=== PATIENT | male | born 1945 | race Caucasian/White ===

== ENCOUNTER 2022-06-13 10:03 | Observation (INO) | payer OTHER, SELFPAY ==
[2022-06-13] VITALS (18 sets, daily range): BP systolic 128–159; BP diastolic 63–83; PULSE 79–106; RESP 11–25; TEMP 36.7–37.5; O2SAT 93–100
--- NOTE | ~2022-06-13 | XR_ITS ---
EXAMINATION: XR chest 1V portable DATE: 06/13/2022 10:17 INDICATION: Midsternal chest pain radiating to the back TECHNIQUE: frontal view of the chest was obtained. COMPARISON: Chest radiograph dated 08/29/2009 FINDINGS: The lungs remain clear with no focal airspace opacities, pulmonary edema, pleural effusion or pneumot horax. The cardiomediastinal silhouette is normal. There are bridging osteophytes at multiple levels in the spine, consistent with diffuse idiopathic skeletal hyperostosis (DISH). IMPRESSION: 1. No acute cardiopulmonary disease. Reviewed, dictated and finalized at location A.
--- NOTE | 2022-06-13 10:05 | PC.NURSE ---
Dr. Prajapati at bedside to assess pt.
--- NOTE | 2022-06-13 10:05 | ECG_ITS ---
Measurements Intervals [place] Rate: 88 P: 40 NV: 154 QRS: -22 QRSD: 94 T: 33 QT: 350 QTc: 425 Interpretive Statements SINUS RHYTHM POSSIBLE LEFT ATRIAL ENLARGEMENT INCOMPLETE RIGHT BUNDLE BRANCH BLOCK BORDERLINE ECG Electronically Signed On 06-13-2022 16:34:18 CDT by Kranthi Palomino D.O.
--- NOTE | 2022-06-13 10:09 | ED.CHESTPAIN ---
HPI - Chest Pain General Chief Complaint: Chest Pain Stated Complaint: CHEST HEAVINESS Source: RN notes reviewed History of Present Illness HPI narrative: Patient presents emergency department from home via EMS for chest pain. Patient states he awoke with chest pain in the midsternal chest radiating through to his back. The pain was described as a heaviness. Patient states that he had mild shortness of breath related with the pain and states the pain is improved at this time he was given aspirin and nitro by EMS. Patient states he has a history of heart attack 15 years ago stent placement but is not seen cardiology for the past 8 years he denies any fevers or chills abdominal pain nausea vomiting or any other symptoms Related Data Allergies Allergy/AdvReac Type Severity Reaction Status Date / Time No Known Allergies Allergy Verified 06/13/22 10:28 Review of Systems Review of Systems: Gen.: Denies fevers or chills ENT: Denies congestion Respiratory: Reports shortness of breath or chest pain CV: HPI GI: Denies abdominal pain nausea, emesis or diarrhea Musculoskeletal: Denies back pain or muscle pain Neuro: Denies numbness, tingling, weakness or focal weakness Skin: Denies rash Except as documented, all other systems reviewed and negative PMF Past Medical History Medical History Chronic kidney disease, stage 3 (moderate) Diabetes mellitus with nephropathy Essential (primary) hypertension Mixed hyperlipidemia (08/11/19) Personal history of malignant melanoma of skin Vitamin D deficiency Surgical History Surgical History History of coronary artery stent placement (08/11/19) Family History Family History Mother Patient's mother is Family history of malignant neoplasm Sibling Patient's sister is in good health Patient's brother is in good health Father Family history of cardiovascular disease Patient's father is Social History Social History Smoking status: Never smoker Second hand tobacco smoke exposure: No Alcohol intake: never Substance use: never Substance use type: does not use Exam Narrative: APPEARANCE: No acute distress, nontoxic, resting in bed EYES: EOMI HEENT: Normocephalic, atraumatic, OMM RESPIRATORY: No respiratory distress Clear to auscultation bilaterally with no rhonchi wheezing or rales. CARDIOVASCULAR: Regular rate and rhythm without murmurs rubs or gallops. ABDOMINAL: Soft, nontender, nondistended, no rebound or guarding MUSCULOSKELETAl: Moves all extremities. No clubbing, cyanosis or edema. NEURO: Awake and alert. Following commands, speech normal, no focal deficits SKIN:: Warm, dry. No rashes lesions or abrasions PSYCHIATRIC: Normal affect/mood, Course Course Emergency Course: Patient states chest pain is resolved at this time Discussed Dr. Wu agrees with admission Discussed with patient and family results of workup and diagnosis. Discussed need for admission. Patient and family understand and agree to current treatment plan Vital Signs Vital signs: Vital Signs Temperature 98.1 F 06/13/22 10:03 Pulse Rate 88 06/13/22 10:03 Respiratory Rate 14 06/13/22 10:03 Blood Pressure 159/80 H 06/13/22 10:03 Pulse Oximetry 96 06/13/22 10:03 Oxygen Delivery Room Air 06/13/22 10:03 Temperature 98.1 F 06/13/22 10:03 Pulse Rate 86 06/13/22 10:22 Respiratory Rate 14 06/13/22 10:03 Blood Pressure 159/80 H 06/13/22 10:03 Pulse Oximetry 99 06/13/22 10:22 Oxygen Delivery Room Air 06/13/22 10:22 MDM - Chest Pain Lab Data Result diagrams: 06/13/22 10:27 06/13/22 10:27 Labs: Lab Results 06/13/22 06/13/22 06/13/22 Range/Units 10:27 10:2
--- NOTE | 2022-06-13 10:14 | PC.NURSE ---
Radiology at bedside to obtain CXR.
[2022-06-13 10:33] LABS: Basophils Percent Auto 0.3 % (0.2-1.2); Eosinophils Absolute Auto 0.1 K/mm3 (0-0.3); Eosinophils Percent Auto 0.6 % (0-4.4); Hematocrit 38.6 % (42.0-52.0); Hemoglobin 12.7 g/dL (14.0-18.0); Immature Granulocyte Absolute 0.03 K/mm3 (0.00-0.031); Immature Granulocyte Percent A 0.3 % (0-0.5); Lymphocytes Absolute Auto 1.71 K/mm3 (0.9-3.2); Lymphocytes Percent Auto 14.8 % (18.3-44.2); Mean Corpuscular HGB Conc 32.9 g/dl (32-36); Mean Corpuscular Hemoglobin 30.2 pg (26-34); Mean Corpuscular Volume 91.9 fl (80-100); Mean Platelet Volume 9.8 fl (7.4-10.4); Monocytes Absolute Auto 1.3 K/mm3 (0.1-0.6); Monocytes Percent Auto 11.4 % (2.6-8.5); Neutrophils Absolute Auto 8.4 K/mm3 (1.3-6.7); Neutrophils Percent Auto 72.6 % (45.5-73.1); Platelet Count Result 222 k/mm3 (150-375); Red Cell Distribution Width 12.4 % (11.5-14.5); White Blood Count 11.5 K/mm3 (4.5-10.0)
[2022-06-13 10:43] LABS: Alanine Aminotransferase 25 U/L (6-50); Albumin Level 4.1 g/dL (3.5-5.1); Alkaline Phosphatase 72 U/L (38-126); Anion Gap 9 mmol/L (8-16); Aspartate Amino Transferase 23 U/L (17-59); Bilirubin,Total 0.7 mg/dL (0.2-1.3); Blood Urea Nitrogen 19 mg/dL (9-20); Carbon Dioxide 26 mmol/L (22-30); Chloride 102 mmol/L (98-107); Estimated CRCL calculation 56 ml/min; Estimated Glomerular Filt Rate 59; Glucose 130 mg/dL (65-110); Lipase 129 U/L (23-300); Potassium 3.9 mmol/L (3.4-5.0); Sodium 137 mmol/L (137-145)
[2022-06-13 10:45] LABS: INR 1.1; Partial Thromboplastin Time 27.2 SECONDS (22.3-36.8); Prothrombin Time 14.2 Seconds (11.1-14.7)
[2022-06-13 10:55] LABS: Troponin I 0.013 ng/mL (0.000-0.034)
--- NOTE | 2022-06-13 11:56 | ADMGEN ---
This patient, Estevan Atkins, was admitted to IMU Room 209-01 at 1149. Patient/family oriented to hospital policies and general routines including ID bracelet, bed and alarms, visiting hours, pain management, procedures, bathroom and other care routines, personal items, smoking policy, room service/diet, and visiting hours. Information on how to activate the Rapid Response Team has been discussed. Patient/Family are encouraged to report perceived risks to care and to ask questions if they do not understand what they are told or what they should do.
--- NOTE | 2022-06-13 12:00 | ADMGEN ---
This patient, Estevan Atkins, was admitted to IMU Room 209-01 at 1200. Patient/family oriented to hospital policies and general routines including ID bracelet, bed and alarms, visiting hours, pain management, procedures, bathroom and other care routines, personal items, smoking policy, room service/diet, and visiting hours. Information on how to activate the Rapid Response Team has been discussed. Patient/Family are encouraged to report perceived risks to care and to ask questions if they do not understand what they are told or what they should do.
--- NOTE | 2022-06-13 12:44 | ECHO_ITS ---
Patient Info Name: Estevan Atkins Age: 77 years : 1945 Gender: Male Ht: 70 in Wt: 224 lbs BSA: 2.27 m2 HR: 98 bpm BP: 157 / 69 mmHg Heart Rhythm: Sinus Rhythm Exam Date: 06/13/2022 2:39 PM Exam Location: [facility] Patient Status: Inpatient Admit Date: 06/13/2022 Staff Ordering Physician: Ania Wu MD Hotel Housekeeper: Manuela Heaton RDCS Attending Provider: Ania Wu MD Referring Physician: Jazmin JIMENEZ; Exam Type: CA echo doppler color flow Study Info Indications - atrial fibrillation Complete two-dimensional, color flow and Doppler transthoracic echocardiogram is performed. Summary 1. Complete two-dimensional, color flow and Doppler transthoracic echocardiogram is performed. 2. Normal left ventricular size and thickness with good contractility of all segments. No segmental wall motion abnormalities. Ejection fraction is 60-65% visually. Grade 1 diastolic dysfunction is present. 3. No significant valve disease. 4. Pulmonary pressure could not be estimated on this study. 5. No pericardial effusion. 6. Mildly dilated sinuses of Valsalva at 4.0 cm. 7. Normal sinus rhythm. Left Ventricle Left ventricular chamber dimension is normal. Left ventricular systolic function is normal, estimated at 60-65%. There is no increased left ventricular wall thickness. Left ventricular septal wall motion is normal. The left ventricular diastolic function is grade I diastolic dysfunction. Right Ventricle Right ventricular chamber dimension is normal. Right ventricular systolic function is normal. Left Atria Left atrial chamber dimension is mildly enlarged. Right Atria Right atrial chamber dimension is normal. Aortic Valve The aortic valve is trileaflet. There is no aortic valve sclerosis. There is no aortic valve stenosis. There is no aortic valve regurgitation. Pulmonic Valve The pulmonic valve is normal. There is no pulmonic valve stenosis. There is no pulmonic regurgitation. Mitral Valve The mitral valve has normal leaflets. There is no mitral valve stenosis. There is trace mitral valve regurgitation. Tricuspid Valve The tricuspid valve leaflets are normal. There is no significant tricuspid valve stenosis. There is trace tricuspid valve regurgitation. No pulmonary hypertension, estimated pulmonary arterial systolic pressure is Empty. Pericardium/Pleural The pericardium appears normal. There is no pericardial effusion. Inferior Vena Cava Normal inferior vena cava with >50% collapse upon inspiration consistent with Empty right atrial pressure, Empty. Aorta The aortic root size at the sinus of Valsalva is mildly dilated. The prox ascending aorta size is normal. Left Ventricular Outflow Tract Name Value Normal LVOT 2D LVOT Diameter 2.3 cm LVOT Doppler LVOT Peak Gradient 5 mmHg LVOT Mean Gradient 4 mmHg LVOT VTI 20 cm LVOT VTI/AV VTI Ratio 1.1 LVOT Stroke Volume 81 ml
[2022-06-13 13:57] LABS: Troponin I < 0.012 ng/mL (0.000-0.034)
--- NOTE | 2022-06-13 14:07 | PM.IMHP ---
H&P: HPI History of Present Illness Date/Time: 06/13/22 14:07 Chief Complaint: Chest pain Narrative: 77-year-old male who was followed in the distant past by Dr. Farah admitted for chest pain. History of RI 15 years ago and stent placement. History of hypertension, hyperlipidemia and prediabetes. Review of old records shows that In 2008 the patient was admitted with acute coronary syndrome. He had a 4 x 15 mm jitney driver stent placed in the mid circumflex, which was totally occluded. He had residual 90% stenosis of the mid PDA. EF 50% by cardiac catheterization. Echo showed EF 60% with no segmental wall motion abnormalities. Patient states he was in his normal state of health recently with no exertional chest discomfort. Was bothered by little heartburn yesterday and took something for it. Last night could not get comfortable, up 4 times with nocturia which is not terribly unusual. Early this morning he had the onset of lower midsternal chest discomfort like an elephant sitting on his chest with pressure radiating to the back and interscapular area. This lasted about 30-45 minutes altogether. EMS was summoned and on their arrival he was ambulating in no distress, blood pressure 180/70 O2 sat 98%. He was given nitroglycerin and aspirin and the chest discomfort resolved. Since noon however it has come back, mostly w/ intrascapular discomfort, and he is having trouble getting comfortable. There is a pleuritic component to it. No cough, SOB, diaphoresis or congestion. No fevers but the patient apparently is having chills with shaking. Apparently he has had a temperature of 99?. Troponins negative x2 06/13/2022 EKG at 10:06 a.m.: Sinus rhythm rate 88, left atrial enlargement, left axis deviation, no acute ischemic changes. Personally reviewed. Review of Systems Constitutional: Constitutional: Denies fever(s) Comments: Having some chills ENT: Denies epistaxis Cardiovascular: Cardiovascular: Reports chest pain, Denies pedal edema, Denies lightheadedness and Denies dyspnea Respiratory: Respiratory: Denies chest congestion and Denies dyspnea Gastrointestinal: Gastrointestinal: Denies abdominal pain, Denies hematochezia and Reports heartburn (Yesterday) Genitourinary: Genitourinary: Denies hematuria, Denies dysuria and Reports urinary frequency Musculoskeletal: Musculoskeletal: Reports back pain Comments: Interscapular pain Integumentary/Breasts: Skin/Breast: Reports system reviewed and no additional complaints, except as docu Neurologic: Reports system reviewed and no additional complaints, except as documented, Denies behavioral changes and Denies confusion Psychiatric: Psychiatric: Denies behavioral changes and Denies confusion PMFSH Past Medical History Medical History Chronic kidney disease, stage 3 (moderate) Diabetes mellitus with nephropathy Essential (primary) hypertension Mixed hyperlipidemia (08/11/19) Personal history of malignant melanoma of skin Vitamin D deficiency Surgical History Surgical History History of coronary artery stent placement (08/11/19) Family History Family History Mother Patient's mother is Family history of malignant neoplasm Sibling Patient's sister is in good health Patient's brother is in good health Father Family history of cardiovascular disease Patient's father is Social History Social History (Updated 06/13/22 @ 14:46 by Ania Wu MD) Social History: . Smoking packs per day: 1 Smoking cigarettes per day: 20.0 Years smoked: 13 Smoking pack-years: 13.00 Smoking status: Former smoker Second hand tobacco smoke exposure: No Alcoho
--- NOTE | 2022-06-13 14:37 | ECG_ITS ---
Measurements Intervals [place] Rate: 98 P: 50 FL: 159 QRS: -23 QRSD: 104 T: 46 QT: 323 QTc: 413 Interpretive Statements SINUS RHYTHM POSSIBLE LEFT ATRIAL ENLARGEMENT BORDERLINE ECG Electronically Signed On 06-13-2022 16:38:48 CDT by Kranthi Palomino D.O.
[2022-06-13] MEDS: NITROGLYCERIN SL 0.4 MG TABLET SUBLINGUAL ×3 (15:31→15:55)
--- NOTE | 2022-06-13 16:15 | ECG_ITS ---
Measurements Intervals [place] Rate: 103 P: 41 CO: 152 QRS: -23 QRSD: 87 T: 44 QT: 315 QTc: 414 Interpretive Statements SINUS TACHYCARDIA POSSIBLE LEFT ATRIAL ENLARGEMENT ST ELEVATION IN DIFFUSE LEADS CONSISTENT WITH INJURY, PERICARDITIS, OR EARLY REPOLARIZATION BASELINE ARTIFACT- I, II ABNORMAL ECG Electronically Signed On 06-13-2022 17:17:44 CDT by Kranthi Palomino D.O.
[2022-06-13 16:21] LABS: Troponin I < 0.012 ng/mL (0.000-0.034)
[2022-06-13 16:37] LABS: Erythrocyte Sedimentation Rate 65 mm/hr (0-20)
[2022-06-13] MEDS: KETOROLAC 30 MG/ML VIAL (*BKC) IV PUSH (17:49)
[2022-06-13] MEDS: COLCHICINE 0.6 MG TABLET PO (20:02)
[2022-06-13] MEDS: CLOPIDOGREL BISULFATE 75 MG TABLET PO (20:02)
[2022-06-13] MEDS: SIMVASTATIN 20 MG TABLET 40 MG PO (20:02)
[2022-06-13] MEDS: diphenhydrAMINE HCl CAP 25 MG CAPSULE PO (21:29)
[2022-06-14] VITALS: PULSE 88
[2022-06-14 04:00] VITALS: BP 121/55; PULSE 81; PULSE 82; RESP 20; TEMP 36; O2SAT 98
[2022-06-14 04:30] LABS: Appearance Urine Clear (Clear); Bilirubin Urine 1+ (Negative); Blood Urine Negative (Negative); Color Urine Yellow (Yellow); Glucose Urine UA Negative (Negative); Ketones Urine Trace mg/dL (Negative); Leukocyte Esterase Ur Trace LEU/UL (NEGATIVE); Nitrate Urine Negative (Negative); Protein Urine Negative (Negative); Specific Grav Ur 1.025 (1.001-1.035); Urobilinogen Urine 0.2 mg/dL (<2.0)
[2022-06-14 04:41] LABS: Hyaline Casts Urine 20-29 /lpf; Mucus Urine Few /lpf; Squamous Epithelial Cell Urine Occasional /hpf (Few)
[2022-06-14 04:45] LABS: Add Urine Microscopic? YES
[2022-06-14 04:45] LABS: Basophils Percent Auto 0.2 % (0.2-1.2); Eosinophils Percent Auto 0.1 % (0-4.4); Hematocrit 33.5 % (42.0-52.0); Hemoglobin 11.3 g/dL (14.0-18.0); Immature Granulocyte Absolute 0.09 K/mm3 (0.00-0.031); Immature Granulocyte Percent A 0.5 % (0-0.5); Lymphocytes Absolute Auto 2.01 K/mm3 (0.9-3.2); Lymphocytes Percent Auto 11.2 % (18.3-44.2); Mean Corpuscular HGB Conc 33.7 g/dl (32-36); Mean Corpuscular Hemoglobin 30.9 pg (26-34); Mean Corpuscular Volume 91.5 fl (80-100); Monocytes Absolute Auto 2.6 K/mm3 (0.1-0.6); Monocytes Percent Auto 14.6 % (2.6-8.5); Neutrophils Absolute Auto 13.2 K/mm3 (1.3-6.7); Neutrophils Percent Auto 73.4 % (45.5-73.1); Platelet Count Result 211 k/mm3 (150-375); Red Blood Count 3.66 M/mm3 (4.6-6.20); Red Cell Distribution Width 12.3 % (11.5-14.5)
[2022-06-14 04:58] LABS: Alanine Aminotransferase 29 U/L (6-50); Albumin Level 3.5 g/dL (3.5-5.1); Alkaline Phosphatase 73 U/L (38-126); Anion Gap 7 mmol/L (8-16); Aspartate Amino Transferase 29 U/L (17-59); Blood Urea Nitrogen 27 mg/dL (9-20); Calcium 8.1 mg/dL (8.4-10.2); Carbon Dioxide 27 mmol/L (22-30); Chloride 97 mmol/L (98-107); Estimated CRCL calculation 38 ml/min; Estimated Glomerular Filt Rate 37; Glucose 143 mg/dL (65-110); Potassium 3.8 mmol/L (3.4-5.0); Sodium 131 mmol/L (137-145)
[2022-06-14 05:09] LABS: Troponin I 0.017 ng/mL (0.000-0.034)
[2022-06-14 08:00] VITALS: BP 126/57; PULSE 85; PULSE 87; RESP 16; TEMP 36.4; O2SAT 94
--- NOTE | 2022-06-14 08:00 | ECG_ITS ---
Measurements Intervals [place] Rate: 89 P: 30 MA: 161 QRS: -18 QRSD: 95 T: 24 QT: 348 QTc: 425 Interpretive Statements SINUS RHYTHM ST ELEVATION IN DIFFUSE LEADS- CONSIDER PERICARDITIS, EARLY REPOLARIZATION ABNORMALITY OR INJURY ATYPICAL ECG Electronically Signed On 06-14-2022 9:16:26 CDT by Kranthi Palomino D.O.
[2022-06-14] MEDS: IBUPROFEN 600 MG TABLET PO (08:51)
[2022-06-14] MEDS: COLCHICINE 0.6 MG TABLET PO (08:51)
[2022-06-14] MEDS: FAMOTIDINE 20 MG TABLET PO (08:51)
[2022-06-14] MEDS: METOPROLOL SUCCINATE EXT REL 25 MG TABCR BY MOUTH (08:51)
[2022-06-14 10:00] VITALS: PULSE 88
--- NOTE | 2022-06-14 11:44 | PM.DS ---
DS: Admitting Diagnosis Discharge Date 06/14/2022 Admitting Diagnosis Chest pain DS: Discharge Diagnosis Discharge Diagnosis (1) Pericarditis: Code(s): I31.9 - Disease of pericardium, unspecified Status: Acute Assessment and Plan: Acute pericarditis, probably viral. (2) CAD (coronary artery disease): Code(s): I25.10 - Atherosclerotic heart disease of [place] coronary artery without angina pectoris Status: Acute Assessment and Plan: Stable CAD, history of stent. (3) Acute kidney injury: Code(s): N17.9 - Acute kidney failure, unspecified Status: Acute Assessment and Plan: Chronic kidney disease with acute exacerbation, likely due to nonsteroidal use (4) Essential (primary) hypertension: Code(s): I10 - Essential (primary) hypertension Status: Acute Assessment and Plan: Remained at goal during hospitalization. (5) Mixed hyperlipidemia: Onset Date: 08/11/19 Code(s): E78.2 - Mixed hyperlipidemia Status: Acute Assessment and Plan: LDL cholesterol not at goal. DS: Summary Hospital Course Reason for hospitalization: Chest pain Hospital Course: The patient, who has a history of CAD and circumflex stent and 2006, previously followed by Dr. Farah, was admitted with lower midsternal chest discomfort radiating to the back and interscapular area ?like an elephant sitting on my chest. ? He was admitted for further evaluation through the emergency room. During his hospital stay, he continued to have some residual discomfort of the chest and back. He had a low-grade temperature, 99.5. Troponins were all negative. Mildly elevated white cell count. EKGs initially showed no ischemic or acute changes but follow-up EKGs showed OH depression and ST elevation in a pattern of early repolarization, consistent with pericarditis. He never developed any friction rub. His echo showed normal LV function with no segmental wall motion abnormalities. His sed rate was 65 also consistent with pericarditis. The patient was given at least 2 doses of IV Toradol and started on ibuprofen 600 mg t.i.d. as well as colchicine 0.6 mg b.i.d.. This morning he is feeling great, with resolution of chest discomfort and is eager for discharge. He is not having urinary problems, dysuria or decreased urination. His creatinine has gone up to 1.8, which I suspect is due to the nonsteroidals; I discontinued his ibuprofen. I felt it reasonable to discharge the patient on colchicine as long as he had close follow-up for his acute kidney injury. I requested a BMP for Wednesday of this week. Patient will call if he has any decrease in urination or other problems. Regarding the patient's coronary disease, he will continue clopidogrel, ramipril and metoprolol. His LDL cholesterol in April was 94, not at goal (per for less than 70, less than 50 would be optimal). I change his simvastatin to rosuvastatin. Status at Discharge Cognitive/behavioral status at discharge: Alert and oriented, at baseline Functional status at discharge: independent ambulation Overall status at discharge: patient is back to baseline Time Spent with Patient Time attestation: Total time spent providing and/or coordinating discharge services: Greater than 35 minutes Exam Narrative: Sitting up in chair, alert and smiling, family at bedside Const: General: cooperative, healthy appearing and comfortable; No confusion Orientation/consciousness: oriented to person, patient oriented x3 and No confusion Eyes: General: appearance normal, both eyes and all related structures Neck: Neck: normal visual inspection Resp: Effort & Inspection: normal respiratory effort Auscultation: clear to auscultation bilaterally Cardio: Rate: regular rate Rhythm: regular rhythm Heart sounds: Murmur heart so
[2022-06-14 12:00] VITALS: BP 112/56; PULSE 69; PULSE 82; RESP 20; TEMP 36; O2SAT 97
== END 2022-06-14 12:51 | disposition home or self-care (01) ==
LOC: ANHED 11:01 → ANHIMU 11:30
PROVIDERS: Admitting Provider Internal Medicine Cardiovascular Disease; Emergency Provider Emergency Medicine; PCP Internal Medicine; Visit Provider Internal Medicine Cardiovascular Disease
DX: I30.9 Acute pericarditis, unspecified (principal); I25.10 Atherosclerotic heart disease of native coronary artery without angina pectoris; N17.9 Acute kidney failure, unspecified; R06.02 Shortness of breath; I25.2 Old myocardial infarction; I12.9 Hypertensive chronic kidney disease with stage 1 through stage 4 chronic kidney disease, or unspecified chronic kidney disease; E11.22 Type 2 diabetes mellitus with diabetic chronic kidney disease; N18.30 Chronic kidney disease, stage 3 unspecified; E11.21 Type 2 diabetes mellitus with diabetic nephropathy; E78.2 Mixed hyperlipidemia; E55.9 Vitamin D deficiency, unspecified; Z95.5 Presence of coronary angioplasty implant and graft; Z85.820 Personal history of malignant melanoma of skin; Z79.02 Long term (current) use of antithrombotics/antiplatelets
CPT/HCPCS: 36415; 71045; 80053; 81001; 83690; 84484; 85025; 85610; 85652; 85730; 87040; 93005; 93306; 96374; 99285; A9270; G0378; J1885

== ENCOUNTER 2022-12-07 00:19 | Day surgery (SDC) | payer OTHER, SELFPAY ==
[2022-11-24 10:11] VITALS: BMI 31.6
--- NOTE | 2022-12-04 12:15 | PM.HPGS ---
History of Present Illness History of Present Illness Consent: Risks, benefits, and alternatives have been discussed and questions answered. Patient agrees to proceed with procedure. Chief complaint: hx colon polyps Narrative: Estevan Atkins is a 77 year old male referred for colon cancer screening. At the time of his last colonoscopy in 2010, he had 2 tubular adenomas removed. Review of Systems Review of Systems: All systems reviewed & are unremarkable except as noted in HPI and below PMFSH Past Medical History Medical History Chronic kidney disease, stage 3 (moderate) Diabetes mellitus with nephropathy Essential (primary) hypertension Mixed hyperlipidemia (08/11/19) Personal history of malignant melanoma of skin Vitamin D deficiency Surgical History Surgical History History of coronary artery stent placement (08/11/19) Family History Family History Mother Patient's mother is Family history of malignant neoplasm Sibling Patient's sister is in good health Patient's brother is in good health Father Family history of cardiovascular disease Patient's father is Social History Social History Social History: . Smoking packs per day: 1 Smoking cigarettes per day: 20.0 Years smoked: 13 Smoking pack-years: 13.00 Smoking status: Former smoker Second hand tobacco smoke exposure: No Alcohol intake: current Drinks per week: 2 Substance use: never Substance use type: does not use Lack of Transportation: No Lack of Food: Never True Current Housing: I Have Housing Concerned About Future Housing: No Difficulty Paying Gas/Electric Bills: No Difficulty Paying for Meds: No Currently Unemployed: No Education: High School Diploma/GED Difficulty w/ Childcare or Family Care: No Living arrangements: with family Spiritual care concerns: No Meds Home Medications and Allergies Home Medications Medication Instructions Recorded Confirmed Type rosuvastatin 40 mg tablet 40 mg PO DAILY #30 tabs 06/14/22 11/24/22 Rx ramipril 2.5 mg capsule 2.5 mg PO DAILY #90 caps 09/14/22 11/24/22 Rx cholecalciferol (vitamin D3) 50 50 mcg PO DAILY 11/03/22 11/24/22 History mcg (2,000 unit) capsule omega-3 fatty acids 1,000 mg 1,000 mg PO DAILY 11/03/22 11/24/22 History capsule multivitamin 1 tablet PO DAILY 11/24/22 11/24/22 History metoprolol succinate 25 mg See Rx Instructions .Route 12/03/22 12/07/22 Rx tablet,extended release 24 hr .COMPLEX #90 tabs Allergies Allergy/AdvReac Type Severity Reaction Status Date / Time No Known Allergies Allergy Verified 12/07/22 10:16 Exam Resp: Auscultation: clear to auscultation bilaterally Cardio: Rate: regular rate Rhythm: regular rhythm GI: GI Palp: Yes Soft to palpation and No Tenderness to palpation present (GI) Assessment and Plan Assessment and plan (1) Colon cancer screening: Code(s): Z12.11 - Encounter for screening for malignant neoplasm of colon Status: Acute Assessment and Plan: Colonoscopy with possible biopsy or polypectomy or cautery or injection of substances.
[2022-12-07 10:18] VITALS: BP 147/90; PULSE 108; RESP 18; TEMP 36.1; O2SAT 97
[2022-12-07] MEDS: LACTATED RINGERS 1,000 ML 150 ML IV CONT (10:28)
--- NOTE | 2022-12-07 11:25 | WPDANESEPPF ---
Anes - Initial Pre Proc Eval Procedure: Operation Date: 12/07/22 11:30 Proposed Procedures p Screening Colonoscopy - Lopez Jasso MD Date/Time: 12/07/22 11:25 Surgeon: Lopez Jasso MD Pre Op Diagnosis: hx colon polyps Patient Data Age: 77 Gender: M Height: 1.78 m Weight: 99.6 kg Last Vital Signs Temp 97 F L 12/07/22 10:18 Pulse 108 H 12/07/22 10:18 Resp 18 12/07/22 10:18 BP 147/90 H 12/07/22 10:18 Pulse Ox 97 12/07/22 10:18 O2 Del Method Room Air 12/07/22 10:18 Allergies Allergy/AdvReac Type Severity Reaction Status Date / Time No Known Allergies Allergy Verified 12/07/22 10:16 Home Medications Medication Instructions Recorded Confirmed Type rosuvastatin 40 mg tablet 40 mg PO DAILY #30 tabs 06/14/22 11/24/22 Rx ramipril 2.5 mg capsule 2.5 mg PO DAILY #90 caps 09/14/22 11/24/22 Rx cholecalciferol (vitamin D3) 50 50 mcg PO DAILY 11/03/22 11/24/22 History mcg (2,000 unit) capsule omega-3 fatty acids 1,000 mg 1,000 mg PO DAILY 11/03/22 11/24/22 History capsule multivitamin 1 tablet PO DAILY 11/24/22 11/24/22 History metoprolol succinate 25 mg See Rx Instructions .Route 12/03/22 12/07/22 Rx tablet,extended release 24 hr .COMPLEX #90 tabs Patient hx anesthesia problems: none Family hx anesthesia problems: none Results Review: All pre-operative results and documents have been reviewed as part of the pre-operative evaluation. [facility] Past Medical History Medical History Chronic kidney disease, stage 3 (moderate) Diabetes mellitus with nephropathy Essential (primary) hypertension Mixed hyperlipidemia (08/11/19) Personal history of malignant melanoma of skin Vitamin D deficiency Surgical History Surgical History History of coronary artery stent placement (08/11/19) Family History Family History Mother Patient's mother is Family history of malignant neoplasm Sibling Patient's sister is in good health Patient's brother is in good health Father Family history of cardiovascular disease Patient's father is Social History Social History Social History: . Smoking packs per day: 1 Smoking cigarettes per day: 20.0 Years smoked: 13 Smoking pack-years: 13.00 Smoking status: Former smoker Second hand tobacco smoke exposure: No Alcohol intake: current Drinks per week: 2 Substance use: never Substance use type: does not use Lack of Transportation: No Lack of Food: Never True Current Housing: I Have Housing Concerned About Future Housing: No Difficulty Paying Gas/Electric Bills: No Difficulty Paying for Meds: No Currently Unemployed: No Education: High School Diploma/GED Difficulty w/ Childcare or Family Care: No Living arrangements: with family Spiritual care concerns: No Anes - Eval Final PreProcedure Day of Procedure 12/07/22 11:25 Patient weight: obese Heart: regular rate and rhythm Lungs: clear to auscultation Airway: Mallampati scale class III Neurological: alert and oriented Last oral intake: >/= 8 hours ASA classification: III Emergent: no Anesthetic plan: proceed Anesthesia type and monitoring: general GIVS and standard monitoring Results Review: All pre-operative results and documents have been reviewed as part of the pre-operative evaluation. Informed Consent: The patient's anesthetic plan and its attendant risks and benefits were discussed with the patient/family/POA. Questions were solicited and answers provided to the satisfaction of the patient/family/POA.
[2022-12-07 11:55] VITALS: BP 123/61; PULSE 74; RESP 19; O2SAT 98
[2022-12-07 12:05] VITALS: BP 122/72; PULSE 77; RESP 20; O2SAT 97
[2022-12-07 12:15] VITALS: BP 127/73; PULSE 77; RESP 22; O2SAT 97
== END 2022-12-07 12:17 | disposition home or self-care (01) ==
PROVIDERS: PCP Internal Medicine; Visit Provider Internal Medicine Gastroenterology
PROC: 0DJD8ZZ Inspection of Lower Intestinal Tract, Via Natural or Artificial Opening Endoscopic (ICD-10-PCS; CPT 45378; principal; 2022-12-07 11:30)
DX: Z12.11 Encounter for screening for malignant neoplasm of colon (principal); K57.30 Diverticulosis of large intestine without perforation or abscess without bleeding; D12.0 Benign neoplasm of cecum; I12.9 Hypertensive chronic kidney disease with stage 1 through stage 4 chronic kidney disease, or unspecified chronic kidney disease; E11.22 Type 2 diabetes mellitus with diabetic chronic kidney disease; N18.30 Chronic kidney disease, stage 3 unspecified; E11.21 Type 2 diabetes mellitus with diabetic nephropathy; E78.2 Mixed hyperlipidemia; E55.9 Vitamin D deficiency, unspecified; Z85.820 Personal history of malignant melanoma of skin; Z95.5 Presence of coronary angioplasty implant and graft; Z87.891 Personal history of nicotine dependence; E66.9 Obesity, unspecified; Z68.31 Body mass index [BMI] 31.0-31.9, adult
CPT/HCPCS: 45385; 88305; J2001; J2704; J7120

== ENCOUNTER 2023-07-26 13:03 | Emergency (ER) | payer OTHER, SELFPAY ==
[2023-07-26 13:19] VITALS: BP 147/70; PULSE 80; RESP 18; TEMP 36.5; O2SAT 97
== END 2023-07-26 13:20 | disposition left against medical advice (07) ==
PROVIDERS: PCP Family Medicine
DX: K59.00 Constipation, unspecified (principal)
CPT/HCPCS: 99199

== ENCOUNTER → 2023-11-10 10:49 | Outpatient (CLI) | payer OTHER, SELFPAY ==
--- NOTE | ~2023-11-10 | US_ITS ---
US renal BI 11/10/2023 11:12 Procedure: Realtime transabdominal ultrasound of the kidneys and bladder. Indication: Chronic kidney disease Comparison: No prior studies for comparison. Findings: Renal echotexture is normal bilaterally without hydronephrosis, contour deforming mass or r enal calculus. The right kidney measures 11.9 cm and left kidney measures 11.3 cm. There are small bi lateral renal cysts, largest in the left kidney measuring 1.7 cm. Bladder within normal limits. Incid ental note is made of gallstones. Impression: 1: Bilateral renal cysts. 2: Cholelithiasis. Reviewed, dictated and finalized at location B. [facility] Impression: 1: Bilateral renal cysts. 2: Cholelithiasis.
== END ==
PROVIDERS: PCP Internal Medicine Nephrology; Visit Provider Internal Medicine Nephrology
DX: N18.32 Chronic kidney disease, stage 3b (principal); N28.1 Cyst of kidney, acquired; K80.20 Calculus of gallbladder without cholecystitis without obstruction
CPT/HCPCS: 76775

== ENCOUNTER 2024-02-04 08:30 | Emergency (ER) | payer OTHER, SELFPAY ==
--- NOTE | ~2024-02-04 | CT_ITS ---
EXAMINATION: CT abdomen pelvis wo/w con DATE: 02/04/2024 11:02 INDICATION: Hematuria. Recent left flank pain. TECHNIQUE: Computed tomography (CT) of the abdomen and pelvis was performed without intravenous contr ast. CT of the abdomen and pelvis was then performed with a total of 130 mL Omnipaque-350 intravenous contrast using a double-bolus technique for simultaneous opacification of the renal parenchyma and r enal collecting system. Automated exposure control and iterative reconstruction technique were employ ed. The dose-length product was 2154.64 mGy-cm. COMPARISON: None FINDINGS: Mild discoid atelectasis in the right lower lobe. Heart size is normal. Atherosclerotic coronary fredrick ry calcific location. No pericardial or pleural effusion. There are few small hepatic and single splenic calcification consistent with old granulomatous diseas e. There are multiple fluid attenuation nonenhancing cysts scattered throughout the liver. In additio n there are 4 small hepatic lesions which are of lower attenuation than the surrounding liver but gre ater than simple fluid attenuation and which demonstrate homogeneous mild enhancement also slightly l ess than the surrounding liver which raises concern for metastatic disease. There is a 9.2 x 6.9 x 7.9 cm left renal mass centered from the upper pole to the lower pole and whic h invades the left renal vein with enhancing central tumor thrombus extending medially from the kidne y to the inferior vena cava. There are few bilateral low-attenuation renal cysts. No urolithiasis in either kidney or along the course of the normal-appearing ureters both of which opacified with contra st to the level of the ureterovesicular junction with small amount of contrast in the normal bladder. Prostatomegaly measuring 4.6 x 4.1 cm. Pancreas and bilateral adrenal glands are normal. There is moderate colonic diverticulosis with a sig moid predominance. There is no adjacent inflammatory change to suggest diverticulitis. Small bowel and appendix are normal. No free intraperitoneal gas or fluid. There is mild stranding surrounding a couple mildly enlarged left periaortic lymph nodes at the level of the left renal artery, the larger measuring 2.6 x 1.6 cm . No other pathologically enlarged abdominal or pelvic lymphadenopathy. Severe disc height loss with degenerative endplate changes at L5-S1. Otherwise mild spondylosis more cephal ad lumbar and lower thoracic spine with bridging osteophytes at multiple levels consistent with diffu se idiopathic skeletal hyperostosis (DISH). IMPRESSION: 1. 9.2 cm left renal mass concerning for renal cell carcinoma with intravascular extension and tumor thrombus in the left renal vein. 2. A couple mildly enlarged left para-aortic lymph nodes at level of the renal artery and 4 indetermi herber hypoenhancing hepatic lesions measuring up to 1.8 cm which are suspicious for metastatic disease . Could consider ultrasound-guided liver biopsy for pathologic correlation. 3. Diverticulosis. Reviewed, dictated and finalized at location A. IMPRESSION: 1. 9.2 cm left renal mass concerning for renal cell carcinoma with intravascula r extension and tumor thrombus in the left renal vein. 2. A couple mildly enlarged left para-aortic lymph nodes at level of the renal artery and 4 indeterminate hypoenhancing hepatic lesions measuring up to 1.8 cm which are suspicious for metastatic disease. Could consider ultrasound-guided liver biopsy for pathologic correlation. 3. Diverticulosis.
[2024-02-04 08:33] VITALS: BP 163/80; PULSE 74; RESP 16; TEMP 36.7; O2SAT 99
[2024-02-04 09:30] VITALS: BP 157/79; PULSE 78; RESP 16; TEMP 36.7; O2SAT 100
--- NOTE | 2024-02-04 09:44 | ED.MALEGU ---
HPI - Male Genitourinary General Chief complaint: Urogenital-Male Stated complaint: blood in urine Time Seen by Provider: 02/04/24 08:56 Source: patient Mode of arrival: ambulatory Limitations: no limitations History of Present Illness HPI Narrative: Patient is a 79-year-old male who presents the ED with report of hematuria. Patient reports he has had blood in his urine with intermittent blood clots since Wednesday. He has previously seen Dr. De Leon and has a known cyst to his left kidney. He states on Wednesday and Wednesday he had pain throughout his left flank region, but this has since resolved. Blood has continued. He felt the blood was worse this morning with larger clots, which prompted his presentation. He reports dysuria, denies current abdominal or flank pain. Denies nausea, vomiting, fevers. Denies dizziness or lightheadedness. He is not on any blood thinners. Denies history of kidney stones. Related Data Home Medications Medication Instructions Recorded Confirmed cholecalciferol (vitamin D3) 50 50 mcg PO DAILY 11/03/22 12/02/23 mcg (2,000 unit) capsule omega-3 fatty acids 1,000 mg 1,000 mg PO DAILY 11/03/22 12/02/23 capsule multivitamin 1 tablet PO DAILY 11/24/22 12/02/23 Allergies Allergy/AdvReac Type Severity Reaction Status Date / Time No Known Allergies Allergy Verified 12/08/23 07:09 Review of Systems Review of Systems: CONSTITUTIONAL: Denies fever, chills, or sweats. GASTROINTESTINAL: Denies abdominal pain, nausea, vomiting, or diarrhea. GENITOURINARY: See HPI MUSCULOSKELETAL: See HPI NEUROLOGIC: Denies headache, dizziness, numbness, or weakness. All systems reviewed & are unremarkable except as noted in HPI and below PMFSH Past Medical History Medical History Chronic kidney disease, stage 3 (moderate) Diabetes mellitus with nephropathy Essential (primary) hypertension Mixed hyperlipidemia (08/11/19) Personal history of malignant melanoma of skin Vitamin D deficiency Surgical History Surgical History History of coronary artery stent placement (08/11/19) Family History Family History Mother Patient's mother is Family history of malignant neoplasm Sibling Patient's sister is in good health Patient's brother is in good health Father Family history of cardiovascular disease Patient's father is Social History Social History Social History: . Smoking packs per day: 1 Smoking cigarettes per day: 20.0 Years smoked: 13 Smoking pack-years: 13.00 Smoking status: Former smoker Second hand tobacco smoke exposure: No Alcohol intake: current Drinks per week: 2 Substance use: never Substance use type: does not use Do You Feel Safe in your Home?: Yes Lack of Transportation: No Lack of Food: Never True Current Housing: I Have Housing Concerned About Future Housing: No Difficulty Paying Gas/Electric Bills: No Difficulty Paying for Meds: No Currently Unemployed: No Education: Trade/Vocational Certificate Difficulty w/ Childcare or Family Care: No Living arrangements: with family Occupation/Education: retired Gender identity (if verbalized by the patient): Male Spiritual care concerns: No Exam Narrative: GENERAL: Well appearing, Obese with BMI of 31.9, non-toxic, in no acute distress. HEAD: Normocephalic, atraumatic. RESPIRATORY: Airway patent, respirations nonlabored. Clear to auscultation bilaterally, no rales, rhonchi, wheezing. CARDIOVASCULAR: Regular rate and rhythm without murmurs, rubs, or gallops. ABDOMINAL: Soft, no tenderness throughout abdomen, nondistended. Normoactive BS. no CVA tenderness to percussion. MUSCULOSKELETAL: Moves a
[2024-02-04] MEDS: SODIUM CHLORIDE 0.9% IV 1,000 ML 999 ML IV CONT (09:54)
[2024-02-04 10:12] LABS: Basophils Percent Auto 0.4 % (0.2-1.2); Eosinophils Absolute Auto 0.1 K/mm3 (0-0.3); Eosinophils Percent Auto 0.8 % (0-4.4); Hemoglobin 12.1 g/dL (14.0-18.0); Immature Granulocyte Absolute 0.04 K/mm3 (0.00-0.031); Immature Granulocyte Percent A 0.4 % (0-0.5); Lymphocytes Absolute Auto 1.36 K/mm3 (0.9-3.2); Lymphocytes Percent Auto 14.8 % (18.3-44.2); Mean Corpuscular HGB Conc 33.6 g/dl (32-36); Mean Corpuscular Hemoglobin 30.3 pg (26-34); Mean Corpuscular Volume 90.2 fl (80-100); Mean Platelet Volume 10.5 fl (7.4-10.4); Monocytes Absolute Auto 1.2 K/mm3 (0.1-0.6); Monocytes Percent Auto 13.3 % (2.6-8.5); Neutrophils Absolute Auto 6.5 K/mm3 (1.3-6.7); Neutrophils Percent Auto 70.3 % (45.5-73.1); Platelet Count Result 211 k/mm3 (150-375); Red Blood Count 3.99 M/mm3 (4.6-6.20); Red Cell Distribution Width 13.4 % (11.5-14.5); White Blood Count 9.2 K/mm3 (4.5-10.0)
[2024-02-04 10:23] LABS: Alanine Aminotransferase 55 U/L (6-50); Albumin Level 3.7 g/dL (3.5-5.1); Alkaline Phosphatase 111 U/L (38-126); Anion Gap 4 mmol/L (8-16); Aspartate Amino Transferase 53 U/L (17-59); Bilirubin,Total 0.8 mg/dL (0.2-1.3); Blood Urea Nitrogen 23 mg/dL (9-20); Calcium 9.4 mg/dL (8.4-10.2); Carbon Dioxide 24 mmol/L (22-30); Chloride 104 mmol/L (98-107); Estimated CRCL calculation 40 ml/min; Estimated Glomerular Filt Rate 39; Glucose 130 mg/dL (65-110); Potassium 4.2 mmol/L (3.4-5.0); Sodium 132 mmol/L (137-145)
[2024-02-04 10:25] LABS: INR 1.1; Prothrombin Time 15.3 Seconds (11.1-14.7)
[2024-02-04 10:26] LABS: Partial Thromboplastin Time 34.7 Seconds (22.3-36.8)
[2024-02-04 10:30] VITALS: BP 152/84; PULSE 74; RESP 16; TEMP 36.7; O2SAT 98
[2024-02-04 10:31] LABS: Bacteria Urine Rare /hpf; Non Pathogenic Casts 0-2; Squamous Epithelial Cell Urine Moderate /hpf (Few); WBC Urine 51-100 /hpf (0-3)
[2024-02-04 10:33] LABS: Need Manual Microscopic Reviewed
[2024-02-04 10:39] LABS: Appearance Urine Cloudy (Clear); Color Urine Red (Yellow)
[2024-02-04 10:40] LABS: Add Urine Microscopic? YES
[2024-02-04 10:41] LABS: RBC Urine >100 /hpf (0-2)
[2024-02-04 11:30] VITALS: BP 180/76; PULSE 74; RESP 16; TEMP 36.6; O2SAT 98
[2024-02-04 12:30] VITALS: BP 157/71; PULSE 77; RESP 16; TEMP 36.6; O2SAT 100
--- NOTE | 2024-02-04 12:41 | WPDURCON ---
Assessment and Plan Assessment and plan (1) CKD (chronic kidney disease): Code(s): N18.9 - Chronic kidney disease, unspecified Status: Acute (2) Gross hematuria: Code(s): R31.0 - Gross hematuria Status: Acute (3) Left renal mass: Code(s): N28.89 - Other specified disorders of kidney and ureter Status: Acute Assessment and Plan: Solid enhancing 9.2 cm left renal mass with extension into the left renal vein consistent with renal cell carcinoma. Two slightly enlarged perihilar lymph nodes and several small enhancing liver nodules consistent with possible metastatic renal cell carcinoma I had a lengthy, florian discussion with the patient, his and daughter. I indicated this almost certainly represents renal cell carcinoma with possible small-volume metastasis. I have conferred with of my partners who specializes in kidney cancer, Dr. Darwin Small. We will make arrangements for follow-up both with him and a urological oncologist (Dr. Estuardo Lizarraga), in [facility]. My office will contact patient to arrange those appointments. Urology Consult Note HPI Date Seen: 02/04/24 Primary Care Provider: Gary Evangelista MD Consult Narrative Narrative: Estevan Atkins is a 79 year old male, previously unknown to our practice, presents to the emergency department with acute onset painless gross hematuria with small clots. This occurred without identifiable precipitating injury or strain. Evaluation in the ED with CT scan the abdomen/pelvis with/without contrast shows a 9.2cm intrinsic, enhancing left renal mass with thrombus extending into the first part of the left renal vein (not extending to the aorta). Additionally, there to slightly enlarge. However lymph nodes and 3-4 small slight be enhancing nodules scattered throughout his liver. Patient denies constitutional symptoms, specifically denying fevers chills night sweats unexplained weight loss. Review of Systems Cardiovascular: Cardiovascular: Denies chest pain, Denies lightheadedness, Denies palpitations and Denies dyspnea Respiratory: Respiratory: Denies dyspnea Gastrointestinal: Gastrointestinal: Denies diarrhea, Denies nausea and Denies vomiting Genitourinary: Genitourinary: Reports hematuria, Denies dysuria and Denies flank pain Endocrine: Endocrine: Denies palpitations PMFSH Past Medical History Medical History Chronic kidney disease, stage 3 (moderate) Diabetes mellitus with nephropathy Essential (primary) hypertension Mixed hyperlipidemia (08/11/19) Personal history of malignant melanoma of skin Vitamin D deficiency Surgical History Surgical History History of coronary artery stent placement (08/11/19) Family History Family History Mother Patient's mother is Family history of malignant neoplasm Sibling Patient's sister is in good health Patient's brother is in good health Father Family history of cardiovascular disease Patient's father is Social History Social History Social History: . Smoking packs per day: 1 Smoking cigarettes per day: 20.0 Years smoked: 13 Smoking pack-years: 13.00 Smoking status: Former smoker Second hand tobacco smoke exposure: No Alcohol intake: current Drinks per week: 2 Substance use: never Substance use type: does not use Do You Feel Safe in your Home?: Yes Lack of Transportation: No Lack of Food: Never True Current Housing: I Have Housing Concerned About Future Housing: No Difficulty Paying Gas/Electric Bills: No Difficulty Paying for Meds: No Currently Unemployed: No Education: Trade/Vocational Certificate Difficulty w/ Childcare or Family Care: No Living arra
== END 2024-02-04 13:18 | disposition home or self-care (01) ==
PROVIDERS: Emergency Provider Physician Assistant; PCP Family Medicine
DX: I82.3 Embolism and thrombosis of renal vein (principal); N39.0 Urinary tract infection, site not specified; R31.0 Gross hematuria; N28.89 Other specified disorders of kidney and ureter; K76.9 Liver disease, unspecified; E11.22 Type 2 diabetes mellitus with diabetic chronic kidney disease; I12.9 Hypertensive chronic kidney disease with stage 1 through stage 4 chronic kidney disease, or unspecified chronic kidney disease; N18.30 Chronic kidney disease, stage 3 unspecified; E78.2 Mixed hyperlipidemia; E55.9 Vitamin D deficiency, unspecified; Z95.5 Presence of coronary angioplasty implant and graft; Z85.828 Personal history of other malignant neoplasm of skin; Z87.891 Personal history of nicotine dependence; K57.90 Diverticulosis of intestine, part unspecified, without perforation or abscess without bleeding
CPT/HCPCS: 36415; 74178; 80053; 85025; 85610; 85730; 87086; 87088; 96361; 96365; 99284; J0696; J7030; Q9967

== ENCOUNTER 2024-02-18 15:05 | Outpatient (CLI) | payer OTHER, SELFPAY ==
--- NOTE | ~2024-02-18 | CT_ITS ---
CT Scan of the Chest without Contrast: Clinical Indication: Renal mass Technique: Contiguous sections were acquired throughout the chest without intravenous contrast. Dose reduction technique was used on this scan by utilizing automated exposure control and iterative recon struction technique. The dose-length product (DLP) was 478.57 mGy-cm. COMPARISON: 02/04/2024 Findings: There is no evidence of any significant mediastinal, hilar or axillary lymphadenopathy. Coronary fredrick ry calcifications are present. There is no evidence of pleural or pericardial effusion. 4 mm right upper lobe pulmonary nodule present (axial and 62). Additional 4 mm right upper lobe pulmo nary nodule present (axial image 65). There is linear scarring or atelectasis right lower lobe. Images through the upper abdomen reveal hepatic cysts as well as hyperdense noncystic hepatic lesions , and calcified gallstones. Large ill-defined left renal mass present. Impression: 4 mm right upper lobe pulmonary nodules, as detailed above, indeterminate. Large ill-defined left renal mass. Please refer to prior CT from 02/04/2024 for further details. Noncystic hepatic lesions. These are suspicious for metastatic disease. Again, please refer to prior abdominal pelvic CT from 02/02/2024 for further details. Reviewed, dictated and finalized at [facility]. Impression: 4 mm right upper lobe pulmonary nodules, as detailed above, indeterminate. Large ill-defined left renal mass. Please refer to prior CT from 02/04/2024 for further details. Noncystic hepatic lesions. These are suspicious for metastatic disease. Again, please refer to prior abdominal pelvic CT from 02/02/2024 for further details.
== END 2024-02-18 15:06 | disposition home or self-care (01) ==
LOC: ANHIMG 15:05
PROVIDERS: PCP Family Medicine; Visit Provider Urology
DX: N28.89 Other specified disorders of kidney and ureter (principal); R91.8 Other nonspecific abnormal finding of lung field
CPT/HCPCS: 71250

== ENCOUNTER 2024-06-02 14:27 | Emergency (ER) | payer OTHER, SELFPAY ==
[2024-06-02] VITALS (20 sets, daily range): BP systolic 179–211; BP diastolic 77–98; PULSE 60–67; RESP 13–20; TEMP 36.4; O2SAT 96–100
--- NOTE | ~2024-06-02 | CT_ITS ---
EXAMINATION: CT brain wo con DATE: 06/02/2024 15:22 INDICATION: Altered mental status TECHNIQUE: Computed tomography (CT) of the head was performed without intravenous contrast. Sagittal and coronal reconstructions were performed. The mA was adjusted according to patient size. Iterative reconstruction technique was employed. The dose-length product was 605.33 mGy-cm. COMPARISON: None FINDINGS: No acute intracranial hemorrhage, acute infarction or abnormal extra axial fluid collection. Symmetri c prominence of the sulci consistent with mild to moderate age-appropriate diffuse cerebral volume lo ss. Ventricles are normal and symmetric. No mass/mass effect. The orbits and mastoid air cells are no rmal. Mild mucosal thickening the ethmoid sinuses. IMPRESSION: 1. Normal aging brain. No acute intracranial process. Reviewed, dictated and finalized at location A.
--- NOTE | ~2024-06-02 | CT_ITS ---
EXAMINATION: CT abdomen pelvis wo con DATE: 06/02/2024 15:22 INDICATION: Altered mental status. Recent nephrectomy. TECHNIQUE: Computed tomography (CT) of the abdomen and pelvis was performed without intravenous contr ast. Automated exposure control and iterative reconstruction technique were employed. The dose-length product was 1210.13 mGy-cm. COMPARISON: 02/04/2024 FINDINGS: Tiny right pleural effusion and minimal dependent atelectasis in bilateral lower lobes. Heart size is normal. Atherosclerotic coronary artery calcific lesion. No pericardial effusion. Hepatic and spleni c calcifications consistent with old granulomatous disease. Multiple low-attenuation lesions in the l iver both lower attenuation which include relatively well-defined hepatic cysts as well as a few slig htly less hypodense and more ill-defined lesions which demonstrate enhancement on the prior postcontr ast imaging suspicious for metastatic disease. These appear unchanged to perhaps slightly decreased i n size however comparison is difficult to clearly defined peripheral margins. Calcified gallstones in the otherwise normal gallbladder. Spleen, pancreas and right adrenal gland are normal. 1.5 cm low-at tenuation right renal cyst and 2 mm nonobstructing right renal stone. Postoperative change of prior l eft nephrectomy and adrenalectomy. Moderate colonic diverticulosis with descending and sigmoid predom inance without adjacent inflammatory stranding to suggest diverticulitis. Small bowel and appendix ar e normal. Bladder is normal. Mild prostatomegaly. Slight decrease in size of a previous 2.6 x 1.6, no w 2.2 x 1.4 cm left para-aortic lymph node positioned along the caudal margin of the left renal arter y stump also suggesting response to treatment of metastatic disease. No other pathologically enlarged abdominal or pelvic lymphadenopathy. Severe spondylosis lumbosacral junction. Mild spondylosis and b ridging osteophytes at multiple levels in the more cephalad lumbar and lower thoracic spine, the latt er consistent with diffuse idiopathic skeletal hyperostosis (DISH). IMPRESSION: 1. Interval left nephrectomy and adrenalectomy for reported renal cell carcinoma. No change to slight decrease in size of a few indeterminate hepatic lesions and slight decrease in size of a mildly enla rged left periaortic lymph node suggesting metastatic disease with mild response to treatment. 2. Tiny right pleural effusion. 3. Cholelithiasis. 4. Nonobstructing 2 mm right renal stone. 5. Diverticulosis without evident diverticulitis. Reviewed, dictated and finalized at location A. IMPRESSION: 1. Interval left nephrectomy and adrenalectomy for reported renal cell carcinom a. No change to slight decrease in size of a few indeterminate hepatic lesions and slight decrease in size of a mildly enlarged left periaortic lymph node sug gesting metastatic disease with mild response to treatment. 2. Tiny right pleural effusion. 3. Cholelithiasis. 4. Nonobstructing 2 mm right renal stone. 5. Diverticulosis without evident diverticulitis.
--- NOTE | 2024-06-02 14:35 | ECG_ITS ---
Test Date: 2024-06-02 14:38:05 Measurements Intervals [place] Rate: 60 P: 20 [place]: 169 QRS: -26 QRSD: 89 T: 58 QT: 404 QTc: 404 Interpretive Statements SINUS RHYTHM VOLTAGE CRITERIA FOR LVH MINIMAL Q WAVES- HIGH LATERAL LEADS BORDERLINE ECG No previous ECG available for comparison Electronically Signed On 06-02-2024 16:02:41 CDT by Kranthi Palomino D.O.
[2024-06-02 14:53] LABS: Basophils Percent Auto 0.5 % (0.2-1.2); Eosinophils Absolute Auto 0.1 K/mm3 (0-0.3); Eosinophils Percent Auto 1.3 % (0-4.4); Hematocrit 38.8 % (42.0-52.0); Hemoglobin 13.2 g/dL (14.0-18.0); Immature Granulocyte Absolute 0.01 K/mm3 (0.00-0.031); Immature Granulocyte Percent A 0.1 % (0-0.5); Immature Platelet Fraction Pct 7.2 % (0.9-11.2); Lymphocytes Absolute Auto 2.72 K/mm3 (0.9-3.2); Lymphocytes Percent Auto 36.2 % (18.3-44.2); Mean Corpuscular Hemoglobin 29.7 pg (26-34); Mean Corpuscular Volume 87.2 fl (80-100); Mean Platelet Volume 11.8 fl (7.4-10.4); Monocytes Absolute Auto 0.6 K/mm3 (0.1-0.6); Monocytes Percent Auto 7.6 % (2.6-8.5); Neutrophils Absolute Auto 4.1 K/mm3 (1.3-6.7); Neutrophils Percent Auto 54.3 % (45.5-73.1); Platelet Count Result 108 k/mm3 (150-375); Red Blood Count 4.45 M/mm3 (4.6-6.20); Red Cell Distribution Width 14.2 % (11.5-14.5); White Blood Count 7.5 K/mm3 (4.5-10.0)
--- NOTE | 2024-06-02 14:55 | ED.GENADULT ---
HPI - General Adult General Chief complaint: Unspecified Stated complaint: HTN, AMS Time Seen by Provider: 06/02/24 14:31 History of Present Illness HPI narrative: 79-year-old male presenting to the emergency department for evaluation for increased confusion and hypertension. Patient had a left-sided nephrectomy done approximately 1 month ago at [facility]. Over the course of the last week states patient has become more confused, having difficulty working with the remotes to operate the TV and slow to answer questions. Patient denies any abdominal pain, denies any change in urination, patient denies any chest pain or shortness of breath. Patient is well appearing but does appear slow to answer questions. Related Data Home Medications Medication Instructions Recorded Confirmed cholecalciferol (vitamin D3) 50 50 mcg PO DAILY 11/03/22 02/07/24 mcg (2,000 unit) capsule omega-3 fatty acids 1,000 mg 1,000 mg PO DAILY 11/03/22 02/07/24 capsule multivitamin 1 tablet PO DAILY 11/24/22 02/07/24 Allergies Allergy/AdvReac Type Severity Reaction Status Date / Time No Known Allergies Allergy Verified 02/07/24 08:40 Review of Systems Review of Systems: All systems reviewed & are unremarkable except as noted in HPI and below PMFSH Past Medical History Medical History Chronic kidney disease, stage 3 (moderate) Diabetes mellitus with nephropathy Essential (primary) hypertension Mixed hyperlipidemia (08/11/19) Personal history of malignant melanoma of skin Vitamin D deficiency Surgical History Surgical History History of coronary artery stent placement (08/11/19) Family History Family History Mother Patient's mother is Family history of malignant neoplasm Sibling Patient's sister is in good health Patient's brother is in good health Father Family history of cardiovascular disease Patient's father is Social History Social History Social History: . Smoking packs per day: 1 Smoking cigarettes per day: 20.0 Years smoked: 13 Smoking pack-years: 13.00 Smoking status: Former smoker Second hand tobacco smoke exposure: No Alcohol intake: current Drinks per week: 2 Substance use: never Substance use type: does not use Do You Feel Safe in your Home?: Yes Lack of Transportation: No Lack of Food: Never True Current Housing: I Have Housing Concerned About Future Housing: No Difficulty Paying Gas/Electric Bills: No Difficulty Paying for Meds: No Currently Unemployed: No Education: Trade/Vocational Certificate Difficulty w/ Childcare or Family Care: No Living arrangements: with family Occupation/Education: retired Gender identity (if verbalized by the patient): Male Spiritual care concerns: No Exam Narrative: APPEARANCE: Well-appearing HEAD: normocephalic, atraumatic. EYES: PERRLA/EOMI, conjunctivae clear. NOSE: Normal no drainage EARS:TMS clear with good light reflex. THROAT: Pharynx clear, no exudate. NECK: Supple. No adenopathy, no masses. RESPIRATORY: Airway patent, respirations nonlabored. Clear to auscultation bilaterally, no rales, rhonchi, wheezing. CARDIOVASCULAR: Regular rate and rhythm without murmurs rubs or gallops. ABDOMINAL: Soft, nontender, nondistended, normal bowel sounds MUSCULOSKELETAL: Moves all extremities. Strength/ROM intact, No edema, No calf tenderness. NEURO: Alert. Cranial nerves II through XII intact. Grossly intact SKIN: Warm, dry. Normal Color Course Course Emergency Course: Patient is at his baseline per family and they were comfortable with plan for discharge home Vital Signs Vital signs: Vital Signs Temperature 97.6
[2024-06-02] MEDS: hydrALAZINE HCL 20 MG/ML VIAL 10 MG IV PUSH ×2 (14:59→16:44)
[2024-06-02 15:01] LABS: Alanine Aminotransferase 66 U/L (6-50); Albumin Level 3.8 g/dL (3.5-5.1); Alkaline Phosphatase 79 U/L (38-126); Anion Gap 6 mmol/L (4-12); Aspartate Amino Transferase 55 U/L (17-59); Bilirubin,Total 0.8 mg/dL (0.2-1.3); Blood Urea Nitrogen 24 mg/dL (9-20); Calcium 8.7 mg/dL (8.4-10.2); Carbon Dioxide 27 mmol/L (22-30); Chloride 105 mmol/L (98-107); Estimated CRCL calculation 30 ml/min; Estimated Glomerular Filt Rate 29; Glucose 100 mg/dL (65-110); Potassium 4.7 mmol/L (3.4-5.0); Sodium 138 mmol/L (137-145)
[2024-06-02 15:02] LABS: Prothrombin Time 13.8 Seconds (11.1-14.7)
[2024-06-02 15:03] LABS: Partial Thromboplastin Time 25.3 Seconds (22.3-36.8)
[2024-06-02 15:28] LABS: Influenza A QL RT-PCR Negative (Negative); Influenza B QL RT-PCR Negative (Negative); RSV RNA, RT-PCR Negative (Negative); SARS-CoV-2 RNA PCR Negative (Negative)
[2024-06-02 16:08] LABS: Appearance Urine Clear (Clear); Bacteria Urine None Seen /hpf; Bilirubin Urine Negative (Negative); Blood Urine Negative (Negative); Color Urine Yellow (Yellow); Glucose Urine UA Negative (Negative); Ketones Urine Negative (Negative); Leukocyte Esterase Ur Negative LEU/UL (Negative); Need Manual Microscopic Reviewed; Nitrate Urine Negative (Negative); Non Pathogenic Casts 0-2; Protein Urine 2+ mg/dL (Negative); Specific Grav Ur 1.011 (1.001-1.035); Squamous Epithelial Cell Urine None Seen /hpf (Few); Urobilinogen Urine 0.2 mg/dL (<2.0); WBC Urine 0-5 /hpf (0-3); pH Urine 6.5 (5.0-9.0)
[2024-06-02 16:09] LABS: Add Urine Microscopic? YES
== END 2024-06-02 18:00 | disposition home or self-care (01) ==
PROVIDERS: Emergency Provider Emergency Medicine; PCP Family Medicine
DX: I12.9 Hypertensive chronic kidney disease with stage 1 through stage 4 chronic kidney disease, or unspecified chronic kidney disease (principal); Z20.822 Contact with and (suspected) exposure to COVID-19; E11.22 Type 2 diabetes mellitus with diabetic chronic kidney disease; N18.30 Chronic kidney disease, stage 3 unspecified; E78.2 Mixed hyperlipidemia; E55.9 Vitamin D deficiency, unspecified; Z95.5 Presence of coronary angioplasty implant and graft; Z85.828 Personal history of other malignant neoplasm of skin; Z87.891 Personal history of nicotine dependence; Z90.5 Acquired absence of kidney; Z90.89 Acquired absence of other organs; R94.31 Abnormal electrocardiogram [ECG] [EKG]; K80.20 Calculus of gallbladder without cholecystitis without obstruction; N20.0 Calculus of kidney; K57.90 Diverticulosis of intestine, part unspecified, without perforation or abscess without bleeding; Z79.899 Other long term (current) drug therapy
CPT/HCPCS: 36415; 70450; 74176; 80053; 81001; 85025; 85055; 85610; 85730; 87637; 93005; 96374; 96376; 99284; A9270; J0360

== ENCOUNTER 2024-06-02 22:21 | Inpatient (IN) | payer OTHER, SELFPAY ==
--- NOTE | ~2024-06-02 | CT_ITS ---
EXAMINATION: CTA brain carotid DATE: 06/03/2024 07:42 CDT INDICATION: Altered mental status TECHNIQUE: Computed tomographic angiography (CTA) of the head was performed without and with 100 mL O mnipaque-350 intravenous contrast. CTA of the neck was performed with intravenous contrast. The dose- length product was 1829.55 mGy-cm. Maximum intensity projection and volume rendered 3D-reconstruction s were created by the technologist on a separate workstation. COMPARISON: CT dated 06/02/2024. FINDINGS: HEAD CTA: Mild generalized atrophy. There are scattered mild periventricular and subcortical white ma tter changes, most likely related to small vessel ischemic disease (microangiopathy). No acute intrac ranial hemorrhage, infarction, mass or mass effect. Paranasal sinuses and mastoids are pneumatized. N o significant vascular occlusion, stenosis or aneurysm. NECK CTA: There is mild atherosclerosis. No occlusion or dissection. Vertebral arteries are symmetric without significant abnormality. The vertebral arteries are codominant. No lymphadenopathy. No signi ficant airway narrowing. There is no significant abnormality of the lung apices. There is less than 10% stenosis of the proximal right internal carotid artery relative to normal dist al artery lumen diameter (NASCET criteria). There is less than 10% stenosis of the proximal left inte rnal carotid artery relative to normal distal artery lumen diameter. IMPRESSION: 1: No acute intracranial abnormality. 2: No significant vascular abnormality of the head or neck. Reviewed, dictated and finalized at location B.
--- NOTE | ~2024-06-02 | XR_ITS ---
XR chest 1V portable 06/03/2024 03:46 Indication: Fever Procedure: AP portable chest Comparison: 06/13/2022 Findings: Borderline heart size. No focal air space disease, pulmonary edema, pleural effusion or shanell pected pneumothorax. Shallow inspiration. No acute osseous abnormality. Impression: 1: No acute cardiopulmonary disease. Reviewed, dictated and finalized at location B. Impression: 1: No acute cardiopulmonary disease.
[2024-06-02 22:22] VITALS: BP 226/109; PULSE 81; RESP 16; TEMP 37.2; O2SAT 96
--- NOTE | 2024-06-02 22:28 | ECG_ITS ---
Test Date: 2024-06-02 22:26:45 Measurements Intervals [place] Rate: 84 P: 41 DC: 162 QRS: -33 QRSD: 86 T: 70 QT: 347 QTc: 412 Interpretive Statements SINUS RHYTHM LEFT AXIS DEVIATION POSSIBLE LEFT ATRIAL ENLARGEMENT POSSIBLE LEFT VENTRICULAR HYPERTROPHY BORDERLINE ST-T WAVE ABNORMALITY- HIGH LATERAL LEADS BASELINE ARTIFACT- I, II, III, AVR, AVL, AVF, V1-V6 BORDERLINE ECG Compared to ECG 06/02/2024 14:38:05 NO SIGNIFICANT CHANGE Electronically Signed On 06-03-2024 08:39:52 CDT by Kranthi Palomino D.O.
[2024-06-02 22:32] VITALS: PULSE 81; RESP 14; O2SAT 97
[2024-06-02 22:40] LABS: Basophils Percent Auto 0.3 % (0.2-1.2); Eosinophils Percent Auto 0.2 % (0-4.4); Hematocrit 42.2 % (42.0-52.0); Hemoglobin 14.3 g/dL (14.0-18.0); Immature Granulocyte Percent A 0.8 % (0-0.5); Lymphocytes Absolute Auto 1.99 K/mm3 (0.9-3.2); Lymphocytes Percent Auto 16.9 % (18.3-44.2); Mean Corpuscular HGB Conc 33.9 g/dl (32-36); Mean Corpuscular Hemoglobin 29.5 pg (26-34); Mean Corpuscular Volume 87.2 fl (80-100); Mean Platelet Volume 11.6 fl (7.4-10.4); Monocytes Absolute Auto 0.5 K/mm3 (0.1-0.6); Monocytes Percent Auto 4.2 % (2.6-8.5); Neutrophils Absolute Auto 9.2 K/mm3 (1.3-6.7); Neutrophils Percent Auto 77.6 % (45.5-73.1); Platelet Count Result 111 k/mm3 (150-375); Red Blood Count 4.84 M/mm3 (4.6-6.20); Red Cell Distribution Width 14.5 % (11.5-14.5); White Blood Count 11.8 K/mm3 (4.5-10.0)
[2024-06-02 22:47] LABS: Alanine Aminotransferase 69 U/L (6-50); Albumin Level 4.1 g/dL (3.5-5.1); Alkaline Phosphatase 95 U/L (38-126); Ammonia < 9 umol/L (9-30); Anion Gap 7 mmol/L (4-12); Aspartate Amino Transferase 62 U/L (17-59); Bilirubin,Total 0.9 mg/dL (0.2-1.3); Blood Urea Nitrogen 28 mg/dL (9-20); Calcium 9.2 mg/dL (8.4-10.2); Carbon Dioxide 27 mmol/L (22-30); Chloride 106 mmol/L (98-107); Estimated CRCL calculation 31 ml/min; Estimated Glomerular Filt Rate 29; Glucose 127 mg/dL (65-110); Potassium 4.8 mmol/L (3.4-5.0); Sodium 140 mmol/L (137-145)
[2024-06-02 22:49] LABS: Partial Thromboplastin Time 24.2 Seconds (22.3-36.8); Prothrombin Time 13.7 Seconds (11.1-14.7)
[2024-06-03] VITALS (26 sets, daily range): BP systolic 162–215; BP diastolic 59–93; PULSE 76–96; RESP 18–24; TEMP 36.3–39.3; O2SAT 94–98; BMI 32.8
[2024-06-03 00:43] LABS: Ethanol < 10 mg/dL (<10)
[2024-06-03] MEDS: LABETALOL HCL INJ 100 MG/20 ML VIAL 20 MG IV PUSH (01:52)
--- NOTE | 2024-06-03 02:45 | ED.GENADULT ---
HPI - General Adult General Chief complaint: Altered Mental Status Stated complaint: AMS, LETHARGY Time Seen by Provider: 06/03/24 00:21 History of Present Illness HPI narrative: This is a 79-year-old male bouncing back to the emergency department for altered mental status. The patient is A&O x1 and can provide no meaningful information to interview. The patient is looking to his right and will not acknowledge his left side of his body or people standing to his left. Patient's family says that over the last week he has been steadily declining. At noon today he noticed that he was slumping over to his side became less responsive. That time he was brought to the emergency department and evaluated. This condition seemed to improve during his stay he was eventually discharged home. However once they got him home the family felt that he was still not responsive and they were having difficulty moving him around the house. They had brought him back to the ED for re-evaluation Related Data Home Medications Medication Instructions Recorded Confirmed cholecalciferol (vitamin D3) 50 50 mcg PO DAILY 11/03/22 02/07/24 mcg (2,000 unit) capsule omega-3 fatty acids 1,000 mg 1,000 mg PO DAILY 11/03/22 02/07/24 capsule multivitamin 1 tablet PO DAILY 11/24/22 02/07/24 Allergies Allergy/AdvReac Type Severity Reaction Status Date / Time No Known Allergies Allergy Verified 02/07/24 08:40 [facility] Past Medical History Medical History Chronic kidney disease, stage 3 (moderate) Diabetes mellitus with nephropathy Essential (primary) hypertension Mixed hyperlipidemia (08/11/19) Personal history of malignant melanoma of skin Vitamin D deficiency Surgical History Surgical History History of coronary artery stent placement (08/11/19) Family History Family History Mother Patient's mother is Family history of malignant neoplasm Sibling Patient's sister is in good health Patient's brother is in good health Father Family history of cardiovascular disease Patient's father is Social History Social History Social History: . Smoking packs per day: 1 Smoking cigarettes per day: 20.0 Years smoked: 13 Smoking pack-years: 13.00 Smoking status: Former smoker Second hand tobacco smoke exposure: No Alcohol intake: current Drinks per week: 2 Substance use: never Substance use type: does not use Do You Feel Safe in your Home?: Yes Lack of Transportation: No Lack of Food: Never True Current Housing: I Have Housing Concerned About Future Housing: No Difficulty Paying Gas/Electric Bills: No Difficulty Paying for Meds: No Currently Unemployed: No Education: Trade/Vocational Certificate Difficulty w/ Childcare or Family Care: No Living arrangements: with family Occupation/Education: retired Gender identity (if verbalized by the patient): Male Spiritual care concerns: No Exam Narrative: APPEARANCE: A&O x1, somnolent, will follow commands in the right side of his body after multiple attempts Head: atraumatic. EYES: Rightward gaze deviation NOSE: Atraumatic NECK: Trachea midline RESPIRATORY: No increased rate of breathing, CTAB CARDIOVASCULAR: RRR, no peripheral edema ABDOMINAL: Well-healed surgical scar MUSCULOSKELETAl: No obvious deformities NEURO: Alert. Moving the right side of his body to command, ignoring the left side of his body, moves his left hand pain SKIN:: Warm, dry. Normal color PSYCHIATRIC: Somnolent Course Vital Signs Vital signs: Vital Signs Temperature 99 F 06/02/24 22:22 Pulse Rate 81 06/02/24 22:22 Respiratory Rate 16 06/02/24 22:22 Blood Pressure 226/109 H 06/02/24 22:22 Pulse
[2024-06-03 02:51] LABS: Lactic Acid Reflex 1.6 mmol/L (0.7-2.0)
[2024-06-03 03:02] LABS: Amphetamine Screen Urine Negative (Negative); Barbiturate Screen Urine Negative (Negative); Benzodiazepines Screen Urine Negative (Negative); Cannabinoid Screen Urine Negative (Negative); Cocaine Screen Urine Negative (Negative); Methadone Screen Urine Negative (Negative); Opiate Screen Urine Negative (Negative); Phencyclidine Screen Urine Negative (Negative)
[2024-06-03] MEDS: SODIUM CHLORIDE 0.9% IV 1,000 ML 999 ML IV CONT (03:55)
[2024-06-03 04:05] LABS: CRP < 0.5 mg/dL (<1.0)
[2024-06-03] MEDS: ACETAMINOPHEN 650 MG SUPPOSITORY RECTAL ×3 (04:13→18:27)
[2024-06-03] MEDS: cefTRIAXone 2 GM/NS 100 ML 2 GM/100 ML BAG IVPB (04:13)
[2024-06-03] MEDS: dexAMETHasone SOD PHOS INJ 10 MG/ML 1 ML VIAL 15 MG IV PUSH ×3 (04:14→18:54)
[2024-06-03 04:16] LABS: Erythrocyte Sedimentation Rate 11 mm/hr (0-20)
[2024-06-03 04:19] LABS: Procalcitonin 0.1 ng/mL
[2024-06-03] MEDS: AMPICILLIN 2 GM/NS 100 ML 2 GM/100 ML BAG IVPB ×3 (05:01→18:54)
[2024-06-03] MEDS: SODIUM CHLOR 3% 15 ML NEB (RESPIRATORY THERAPY) 6 ML INHALATION (05:20)
[2024-06-03 05:27] LABS: Free T4 Free Thyroxine Reflex 1.07 ng/dL (0.78-2.19)
--- NOTE | 2024-06-03 05:27 | ADMGEN ---
This patient, Estevan Atkins, was admitted to IMU Room 232-01 on 06/03/24 at 0510. Patient/family oriented to hospital policies and general routines including ID bracelet, bed and alarms, visiting hours, pain management, procedures, bathroom and other care routines, personal items, smoking policy, room service/diet, and visiting hours. Information on how to activate the Rapid Response Team has been discussed. Patient/Family are encouraged to report perceived risks to care and to ask questions if they do not understand what they are told or what they should do.
--- NOTE | 2024-06-03 05:50 | PCRCNOTE ---
sputum induction administered; no sputum obtained
[2024-06-03] MEDS: LACTATED RINGERS 1,000 ML 125 ML IV CONT ×2 (05:54→13:50)
[2024-06-03] MEDS: ACYCLOVIR SODIUM IVPB 1,000 MG in DEXTROSE 5% IN WATER 250 ML 250 MG IVPB ×2 (05:55→17:43)
[2024-06-03 06:10] LABS: Total Triiodothyronine (T3) 1.19 NG/ML (0.97-1.69)
--- NOTE | 2024-06-03 06:43 | PM.IMHP ---
H&P: HPI History of Present Illness Date/Time: 06/03/24 06:43 Chief Complaint: Stroke-like symptoms Narrative: 79-year-old male with a past medical history of coronary artery disease status post cardiac stent, essential hypertension, hyperlipidemia, chronic kidney disease stage 3 and prediabetes who presented to the ER from home due to stroke-like symptoms. Patient initially presented to the ER on the afternoon of the for increased confusion and elevated blood pressure. The patient had had a recent left-sided nephrectomy 1 month prior at [facility]. Over the course of the week patient had become more confused. He was having difficulty utilizing the TV remote. He was having difficulty answering questions. Around noon on the the patient was slumping over to the left side and was less responsive. He was brought to the ER for evaluation where CT of the brain was negative for any acute process. Patient was noted to be slow to answer questions. A had CBC performed which was normal his creatinine was 2.2 slightly elevated from prior baseline but could been is new baseline. He had COVID and flu PCR that were negative. He had a stable hemoglobin and his CT of the abdomen and pelvis which demonstrated expected postsurgical changes without evidence of infection or abscess. Patient had received some IV fluids and his systolic blood pressures had improved from the 200 systolic down to the 160s to 190 systolic. After the patient returned home he had worsening mental status. His mental status had changed from alert orient times 2-3 to alert orient x1. Prior to recent symptoms patient's mental status is alert oriented x4. Patient's family reports that once I got him home he was even less responsive. They were having difficulty moving him around the house. They called EMS and had the patient brought back the hospital when the patient could not get up to the bathroom himself. The patient was only looking to his right on arrival to the hospital. He would not respond to any input her stimulus from the left side of his body but would acknowledge commands to the right side of his body and would track providers around the right side of the room. His blood pressure was elevated again into the 200 systolic. Patient received 20 mg of IV labetalol with improvement in blood pressures down to the 180s. After he had arrived to the ER rectal temperature was obtained which was elevated to greater than 102?. Patient was tachycardic. His repeat labs demonstrated new leukocytosis, new elevated AST an ALT. Blood cultures were obtained. CTA of the head and neck was negative for occlusive process. Chest x-ray was obtained which was negative for acute pulmonary process. Blood cultures were obtained. UA obtained from prior ER visit was unremarkable. Urine drug screen was negative. 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 Started on oral chemotherapy beginning of May 2024 Chronic kidney disease, stage 3 (moderate) Diabetes mellitus with nephropathy Essential (primary) hypertension Mixed hyperlipidemia (08/11/19) Personal history of malignant melanoma of skin Vitamin D deficiency Surgical History Surgical History (Updated 06/04/24 @ 06:32 by Katelynn Porras DO) History of coronary artery stent placement (08/11/19) History of left radical nephrectomy (~04/2024) At [facility] Family History Family History Mother Family history of malignant neoplasm Patient's mother is Brain cancer Lung cancer Sibling Breast cancer Father Family history of cardiovascular disease Patient's father is Hypertension Social History Social His
[2024-06-03] MEDS: VANCOMYCIN 1,250 MG/NS 250 ML 1,250 MG/250 ML BAG 166.67 MG IVPB ×2 (07:06)
[2024-06-03 16:30] LABS: Basophils Percent Auto 0.1 % (0.2-1.2); Hematocrit 36.7 % (42.0-52.0); Hemoglobin 12.9 g/dL (14.0-18.0); Immature Granulocyte Absolute 0.12 K/mm3 (0.00-0.031); Immature Granulocyte Percent A 1.4 % (0-0.5); Immature Platelet Fraction Pct 7.2 % (0.9-11.2); Lymphocytes Absolute Auto 1.48 K/mm3 (0.9-3.2); Lymphocytes Percent Auto 17.2 % (18.3-44.2); Mean Corpuscular HGB Conc 35.1 g/dl (32-36); Mean Corpuscular Hemoglobin 30.1 pg (26-34); Mean Corpuscular Volume 85.7 fl (80-100); Monocytes Absolute Auto 0.1 K/mm3 (0.1-0.6); Neutrophils Absolute Auto 6.9 K/mm3 (1.3-6.7); Neutrophils Percent Auto 80.3 % (45.5-73.1); Platelet Count Result 85 k/mm3 (150-375); Red Blood Count 4.28 M/mm3 (4.6-6.20); Red Cell Distribution Width 14.6 % (11.5-14.5); White Blood Count 8.6 K/mm3 (4.5-10.0)
[2024-06-03 16:44] LABS: Alanine Aminotransferase 46 U/L (6-50); Albumin Level 3.5 g/dL (3.5-5.1); Alkaline Phosphatase 71 U/L (38-126); Anion Gap 12 mmol/L (4-12); Aspartate Amino Transferase 42 U/L (17-59); Bilirubin,Total 0.7 mg/dL (0.2-1.3); Blood Urea Nitrogen 34 mg/dL (9-20); CRP < 0.5 mg/dL (<1.0); Calcium 7.9 mg/dL (8.4-10.2); Carbon Dioxide 18 mmol/L (22-30); Chloride 108 mmol/L (98-107); Estimated CRCL calculation 29 ml/min; Estimated Glomerular Filt Rate 28; Glucose 168 mg/dL (65-110); Magnesium 1.8 mg/dL (1.6-2.3); Sodium 138 mmol/L (137-145)
--- NOTE | 2024-06-03 17:16 | PM.TDS ---
Transfer Discharge Sum: Prov Provider Date of admission: 06/03/24 04:10 Primary care physician: Gary Evangelista MD Admitting clinician: Katelynn Porras DO Consults: 06/03/24 04:11 Consult to Physician Routine Comment: Consulting Provider: Gabriel La scallop shucker/MD group to consult: Reason for consultation: AMS Has provider been notified: Yes DS: Admitting Diagnosis Discharge Date 06/03/24 Admitting Diagnosis Stroke-like symptoms DS: Discharge Diagnosis Discharge Diagnosis (1) Sepsis: Code(s): A41.9 - Sepsis, unspecified organism Status: Acute (2) Hypertension: Code(s): I10 - Essential (primary) hypertension Status: Acute (3) Encephalopathy: Code(s): G93.40 - Encephalopathy, unspecified Status: Acute Transfer Discharge Sum: Med Medications Active and Home Medications: Home Medications cholecalciferol (vitamin D3) 50 mcg (2,000 unit) capsule 50 mcg PO DAILY 11/03/22 [History Confirmed 06/03/24] omega-3 fatty acids 1,000 mg capsule 1,000 mg PO DAILY 11/03/22 [History Confirmed 06/03/24] multivitamin 1 tablet PO DAILY 11/24/22 [History Confirmed 06/03/24] rosuvastatin 40 mg tablet See Rx Instructions .Route .COMPLEX #90 tabs 05/19/24 [Rx Confirmed 06/03/24] metoprolol succinate 50 mg tablet,extended release 24 hr 50 mg PO DAILY #90 tabs 05/29/24 [Rx Confirmed 06/03/24] ramipril 10 mg capsule 10 mg PO DAILY #90 caps 05/29/24 [Rx Confirmed 06/03/24] Active Medications Acetaminophen (Acetaminophen 650 Mg Suppository) 650 mg RECTAL Q6H PRN PRN Reason: Mild Pain (1-3) or Fever Last Admin: 06/03/24 09:56 Dose: 650 mg Dexamethasone Sodium Phosphate (Dexamethasone Sod Phos Inj 10 Mg/Ml 1 Ml Vial) 15 mg 0.15 mg/kg (15 mg) IV PUSH Q6HR TAL Last Admin: 06/03/24 12:29 Dose: 15 mg Ceftriaxone Sodium (Rocephin 2 Gm/Ns 100 Ml) 2 gm in 100 mls @ 200 mls/hr IVPB Q12HR TAL Ampicillin Sodium (Ampicillin 2 Gm/Ns 100 Ml) 2 gm in 100 mls @ 200 mls/hr IVPB Q6HR [facility] Last Infusion: 06/03/24 12:46 Dose: Infused Lactated Ringer's (Lr - Lactated Ringers Iv) 1,000 mls @ 125 mls/hr IV CONT .Q8H [facility] Last Admin: 06/03/24 13:50 Dose: 125 mls/hr Vancomycin HCl (Vancomycin 1,500 Mg/Ns 500 Ml) 1,500 mg in 500 mls @ 250 mls/hr IVPB Q36H TAL Acyclovir Sodium 1,000 mg/ (Dextrose) 270 mls @ 250 mls/hr IVPB Q12H [facility] Sodium Chloride (Sodium Chlor 3% 15 Ml Neb (Respiratory Therapy)) 6 ml INHALATION DAILY@0500 [facility] Stop: 06/05/24 05:01 Last Admin: 06/03/24 05:20 Dose: 6 ml Transfer Discharge Sum: Hosp Hospital Course Hospital course: Estevan Atkins is a 79 year old male CAD status post cardiac stent, metastatic renal cell CA s/p nephrectomy, HTN, CKD stage 3 and prediabetes who presented to the ER from home due to stroke-like symptoms. Patient initially presented to the ER on the afternoon of the for increased confusion and elevated blood pressure. CBC performed which was normal, His creatinine was 2.2 slightly elevated from prior baseline but could been is new baseline. CT brain showing no acute process. He had COVID and flu PCR that were negative. He had a stable hemoglobin and his CT of the abdomen and pelvis which demonstrated expected postsurgical changes without evidence of infection or abscess. Patient received some IV fluids and his systolic blood pressures had improved from the 200 down to the 160s to 190 systolic. The patient returned home but became more confused so was brought back the the ED. In the ED, his blood pressure was elevated again into the 200 systolic. Patient received 20 mg of IV labetalol with improvement in blood pressures down to the 180s. After he had arrived to the ER rectal temperature was obtained which was elevated to greater than 102.8?. Patient was tachycardic. His repeat labs demonstrated new leukocytosis, new elevated AST and ALT. Blood cultures were obtained. CTA of the head and neck was negative for occlusive pro
[2024-06-03 17:32] LABS: Platelet Estimate Decreased (Adequate); Schistocytes None Seen
[2024-06-03 17:33] LABS: Anisocytosis 1+
[2024-06-03 18:24] LABS: Glucose Point of Care 194 mg/dl (65-105)
--- NOTE | 2024-06-03 18:56 | WPDNEURCNPN ---
Assessment and Plan Assessment and plan (1) Altered mental status: Code(s): R41.82 - Altered mental status, unspecified Status: Acute (2) Carcinoma of left kidney: Code(s): C64.2 - Malignant neoplasm of left kidney, except renal pelvis Status: Acute (3) Encephalopathy: Code(s): G93.40 - Encephalopathy, unspecified Status: Acute (4) Stage 3b chronic kidney disease: Code(s): N18.32 - Chronic kidney disease, stage 3b Status: Acute (5) Prediabetes: Code(s): R73.03 - Prediabetes Status: Acute Plan Neurologic examination findings suggestive of encephalopathy with greater involvement of the left hemisphere than right. There was some gaze pref to the right side and now he has occasional beats of jerking of the right foot. With that he had a seizure or if he has a metastasis in the brain or cerebrovascular disease require MRI of the brain but I was told that he was being transferred to [facility] soon and hence I shall hold off any further investigation unless he does not get of bed and if he stays here should be glad to follow. Consult date: 06/03/24 HPI: Estevan Atkins is a 79 year old male With history of left nephrectomy 1 month ago presented to the emergency room with change in mental status. When I came to see me was sleeping but he soon woke up and was smiley and talking but seems to be somewhat mixed up. A large number family members were here visiting him. The patient has a history of being found to have carcinoma of kidney with metastasis to lung and liver and he was started on a chemotherapy and tablet 2 weeks ago. There is also history of coronary disease and stenting and chronic kidney disease with creatinine 2.20 and white cell count was found to be 11.8 liver enzymes were slightly high. He also has history of diabetes mellitus. CT angiogram head and neck was performed did not show any abnormality. It was noted that he was described as having gaze preference to the right side Review of Systems Review of Systems: no recent febrile illness or trauma reported All systems reviewed & are unremarkable except as noted in HPI and below [facility] Past Medical History Medical History (Updated 06/03/24 @ 19:00 by Gabriel La MD) Altered mental status Carcinoma of left kidney Chronic kidney disease, stage 3 (moderate) Diabetes mellitus with nephropathy Essential (primary) hypertension Mixed hyperlipidemia (08/11/19) Personal history of malignant melanoma of skin Vitamin D deficiency Surgical History Surgical History History of coronary artery stent placement (08/11/19) Family History Family History Mother Family history of malignant neoplasm Patient's mother is Brain cancer Lung cancer Sibling Breast cancer Father Family history of cardiovascular disease Patient's father is Hypertension Social History Social History Social History: . Smoking packs per day: 1 Smoking cigarettes per day: 20.0 Years smoked: 13 Smoking pack-years: 13.00 Smoking status: Former smoker Second hand tobacco smoke exposure: No Alcohol intake: current Drinks per week: 2 Substance use: never Substance use type: does not use Do You Feel Safe in your Home?: Yes Lack of Transportation: No Lack of Food: Never True Current Housing: I Have Housing Concerned About Future Housing: No Difficulty Paying Gas/Electric Bills: No Difficulty Paying for Meds: No Currently Unemployed: No Education: Trade/Vocational Certificate Difficulty w/ Childcare or Family Care: No Living arrangements: with family Occupation/Education: retired Gender identity (if verbalized by the patient): Male Spiritual care concer
[2024-06-06 15:14] LABS: Lyme Disease Ab (IgM), Blot NEGATIVE (NEGATIVE); Lyme Disease Ab(IgG), Blot NEGATIVE (NEGATIVE)
--- NOTE | 2024-06-13 09:47 | PC.NURSE ---
Blood cx are negative. Dr. Ainsley escamilla.
== END 2024-06-03 19:50 | disposition short-term general hospital (02) | DRG 871 ==
LOC: ANHED 06-03 04:09 → ANHIMU 06-03 04:56
PROVIDERS: Admitting Provider Internal Medicine; Emergency Provider Emergency Medicine; PCP Family Medicine; Visit Provider Internal Medicine
DX: A41.9 Sepsis, unspecified organism (principal); G93.41 Metabolic encephalopathy; R65.20 Severe sepsis without septic shock; I25.10 Atherosclerotic heart disease of native coronary artery without angina pectoris; I12.9 Hypertensive chronic kidney disease with stage 1 through stage 4 chronic kidney disease, or unspecified chronic kidney disease; N18.30 Chronic kidney disease, stage 3 unspecified; E11.22 Type 2 diabetes mellitus with diabetic chronic kidney disease; E78.2 Mixed hyperlipidemia; E55.9 Vitamin D deficiency, unspecified; Z85.820 Personal history of malignant melanoma of skin; Z95.5 Presence of coronary angioplasty implant and graft; Z87.891 Personal history of nicotine dependence; Z90.5 Acquired absence of kidney; Z85.528 Personal history of other malignant neoplasm of kidney
CPT/HCPCS: 36415; 70450; 70496; 70498; 71045; 74176; 80053; 80307; 81001; 82140; 82948; 83605; 83735; 84145; 84439; 84443; 84480; 85025; 85055; 85610; 85652; 85730; 86140; 86617; 87040; 87637; 93005; 94640; 96374; 96376; 99285; A9270; J0133; J0290; J0360; J0696; J1100; J3370; J7030; J7060; J7120; Q9967